=== PATIENT | male | born 1970 | race Caucasian/White ===

== ENCOUNTER → 2017-06-21 | Emergency (ER) | payer OTHER ==
[~2017-06-21] VITALS: Ht 180.3 cm; Wt 99.8 kg
[~2017-06-21] MED LIST: DIOVAN HCT 1601 EACH
== END | disposition home or self-care (01) ==
LOC: ER 11:53
DX: H18.892 Other specified disorders of cornea, left eye (principal)

== ENCOUNTER → 2020-07-10 | Emergency (ER) | payer OTHER ==
[~2020-07-10] VITALS: Ht 170.2 cm; Wt 90.7 kg
[~2020-07-10] MED LIST changes: +CYCLOBENZAPRINE10 MG PO; +LOSARTAN-HCTZ1 EAC2; +SKELAGESIC PO
== END ==
LOC: ER 08:28
DX: M54.5 Low back pain (principal); M62.830 Muscle spasm of back